=== PATIENT | male | born 1995 | race African-American/Black ===

== ENCOUNTER 2018-04-11 15:19 | Emergency (ER) | payer SELFPAY ==
[2018-04-11 16:05] LABS: Bilirubin Negative (Negative); Blood, Urine Negative (Negative); Clarity CLEAR (Clear); Glucose, Urine (Dipstick) Negative (Negative); Leukocyte Small (Negative); Nitrite Negative (Negative); Protein, Urine (Dipstick) Trace mg/dL (Neg-Trace); Specific Gravity, Urine 1.035 (1.002-1.036); Urobilinogen 0.2 mg/dL (0.2-1.0)
[2018-04-11 16:08] LABS: Bacteria/HPF None Seen HPF (None Seen); Pathc Cast-AUWi Flag 0.29 (0-2.49); Squamous Epithelial 0-3 HPF (0-3); WBC/HPF 21-50 HPF (0-3)
[2018-04-11 16:20] LABS: Hyaline Casts/LPF 0-3 HYALINE CAST LPF (0-3 Hyaline); RBC/HPF None Seen HPF (0-3); Renal Epithelial None Seen HPF (0-3); Transitional Epithelial NONE SEEN HPF (0-3)
[2018-04-11] MEDS ORDERED: cefTRIAXone\\ROCEPHIN 250 MG VIAL ONE (16:52)
[2018-04-11] MEDS ORDERED: Lidocaine 1% (PF) 30 ML VIAL ONE (16:52)
[2018-04-11] MEDS ORDERED: Azithromycin 250 MG TAB ONE (16:52)
[2018-04-14 23:26] LABS: Chlamydia by PCR Not Detected (NotDetected); GC by PCR Not Detected (NotDetected)
== END 2018-04-11 17:26 | disposition home or self-care (01) ==
LOC: ERS 15:19
DX: N48.89 Other specified disorders of penis (principal); Z87.891 Personal history of nicotine dependence
CPT/HCPCS: 81003; 81015; 87491; 87591; 96372; J0696; J2001

== ENCOUNTER 2018-06-13 13:49 | Emergency (ER) | payer SELFPAY ==
[2018-06-13 14:42] LABS: Bilirubin Small (Negative); Blood, Urine Trace (Negative); Clarity CLEAR (Clear); Glucose, Urine (Dipstick) Negative (Negative); Leukocyte Small (Negative); Nitrite Negative (Negative); Protein, Urine (Dipstick) Trace mg/dL (Neg-Trace); Specific Gravity, Urine 1.035 (1.002-1.036); Urobilinogen 0.2 mg/dL (0.2-1.0); pH, Urine 5.5 (5.0-9.0)
[2018-06-13 14:44] LABS: Bacteria/HPF None Seen HPF (None Seen); Pathc Cast-AUWi Flag 0.58 (0-2.49); Squamous Epithelial 0-3 HPF (0-3)
[2018-06-13 15:09] LABS: Hyaline Casts/LPF 0-3 HYALINE CAST LPF (0-3 Hyaline)
[2018-06-13 15:10] LABS: Transitional Epithelial 0-3 HPF (0-3)
[2018-06-13] MEDS ORDERED: Azithromycin 250 MG TAB ONE (15:58)
[2018-06-13] MEDS ORDERED: cefTRIAXone\\ROCEPHIN 1 GM VIAL ONE (15:58)
[2018-06-13] MEDS ORDERED: Water For Injection,Sterile 20 ML ONE (15:58)
[2018-06-14 22:47] LABS: Chlamydia by PCR DETECTED (NotDetected); GC by PCR Not Detected (NotDetected)
== END 2018-06-13 16:18 | disposition home or self-care (01) ==
LOC: ERS 13:49
DX: A64 Unspecified sexually transmitted disease (principal); F17.210 Nicotine dependence, cigarettes, uncomplicated
CPT/HCPCS: 81003; 81015; 87491; 87591; 96372; J0696